=== PATIENT | male | born 1985 | race African-American/Black ===

== ENCOUNTER 2019-07-01 19:49 | Emergency (ER) | payer OTHER, SELFPAY ==
[2019-07-01] MEDS ORDERED: Ibuprofen 200 MG TAB ONE (20:43)
--- NOTE | 2019-07-01 21:13 | RAD ---
XR Forearm Rt 2 View STANDARD HISTORY: Trauma to forearm. COMPARISON: None. FINDINGS: There are no signs of any acute fracture or dislocation. An old appearing avulsion of the u lnar styloid is seen. IMPRESSION: No acute injury.
--- NOTE | 2019-07-01 21:17 | RAD ---
LEFT WRIST THREE VIEW: 07/01/19 HISTORY: Injury. COMPARISON: None. FINDINGS: Old distal ulnar styloid process fracture. Mild dorsa subluxation of the distal ulna. No acute displaced fracture or malalignment. IMPRESSION: No acute osseous abnormality. POS: HOME
--- NOTE | 2019-07-01 21:20 | RAD ---
RIGHT WRIST THREE VIEW: 07/01/19 HISTORY: Injury. Fall. COMPARISON: None. FINDINGS: There is an old ulnar styloid process fracture. There does appear to be acute fracture of the medial margin of the ulnar styloid process ossicle superimposed upon this old fracture. Moderate degenerativ e changes of the distal radioulnar joint. Dorsal subluxation of the distal ulna at the distal radioulnar joint. IMPRESSION: 1. Evidence of old injury at the ulnar styloid process with concern for a superimposed nondispla teto fracture of the medial margin of the old fracture fragment. 2. Dorsa subluxation distal radial joint indicating distal radioulnar joint ligamentous injury. 3. Age indeterminate fracture of the fifth metacarpal neck incompletely evaluated on this wrist radiograph. If focally tender over this area, dedicated hand radiograph is recommended. POS: HOME
[2019-07-01] MEDS ORDERED: HYDROcodone/Acetaminophen 10/325 mg Tablet ONE (21:21)
--- NOTE | 2019-07-01 22:02 | RAD ---
XR Hand Rt 3 View STANDARD HISTORY: Fall with hand injury. COMPARISON: Wrist films done earlier. FINDINGS: There is an old appearing ulnar styloid injury and arthritic changes of the radial ulnar rochelle int space. The ulnar is also subluxed suggesting radial ulnar ligamentous injury which may be chronic in this patient. An old appearing boxer's fracture of the fifth metacarpal is seen. IMPRESSION: No definite signs of any acute fracture.
[2019-07-01] MEDS ORDERED: Lidocaine 1% w/Epinephrine 1:100K 20 ML VIAL ONE (22:13)
[2019-07-01] MEDS ORDERED: Bupivacaine 0.25% 10 ML VIAL ONE (22:24)
[2019-07-01] MEDS ORDERED: Morphine 4 MG/ML VIAL ONE (23:21)
--- NOTE | 2019-07-01 23:45 | RAD ---
XR Wrist 3 Rt View STANDARD HISTORY: Post reduction. COMPARISON: Previous examination the same day. FINDINGS: Cast material is now present. Old appearing ulnar styloid fracture is noted. Subluxation of the radial ulnar joint is again demonstrated, it appears slightly improved as compared to the prior exam. Old fifth metacarpal fracture seen. IMPRESSION: Suggestion of slight improvement to the position of the ulna in relation to the radius.
== END 2019-07-02 00:02 | disposition home or self-care (01) ==
LOC: ERS 19:49
DX: S63.071A Subluxation of distal end of right ulna, initial encounter (principal); S00.81XA Abrasion of other part of head, initial encounter; F17.210 Nicotine dependence, cigarettes, uncomplicated; V89.2XXA Person injured in unspecified motor-vehicle accident, traffic, initial encounter
CPT/HCPCS: 25605; 96372; J2270; S0020